=== PATIENT | female | born 1990 | race Caucasian/White ===

== ENCOUNTER 2016-06-08 18:35 | Emergency (ER) | payer OTHER ==
[2016-06-08 19:16] VITALS: BP 170/85
--- NOTE | 2016-06-08 19:42 | UC ---
Back Pain HPI - HPI Summary HPI Summary: Spasmodic waves of L flank pain since last night. Has this pain on both sides at different times, in the past had kidney US that didn't show any problems. Pt is certain it is muscle spasms, usually treats with heating pad and pain medicine such as NSAIDS or leftover percocet from her and then it goes away. This time it is not going away and pt needs note for work and help with pain. Wants to see her doctor on Saturday for workup, not interested in a lot of testing here tonight. - History of Current Complaint Chief Complaint: UCBackPain Stated Complaint: BACK PAIN Time Seen by Provider: 06/08/16 19:31 Hx Obtained From: Patient Hx Last Menstrual Period: 05/25/16 ?: No Onset/Duration: Sudden Onset, Lasting Hours Timing: Constant Severity Initially: Mild Severity Currently: Moderate Character: Throbbing, Spasmodic Aggravating: Movement, Lifting, Bending Alleviating: Rest, Position Associated Signs And Symptoms: Negative: Weakness, Numbness, Bladder Incontinence, Bowel Incontinence, Weight Loss - Allergies/Home Medications Allergies/Adverse Reactions: Allergies Allergy/AdvReac Type Severity Reaction Status Date / Time Naproxen [From Aleve] Allergy Tachycardia Verified 06/08/16 19:15 PMH/Surg Hx/FS Hx/Imm Hx Endocrine History Of: Denies: Diabetes, Thyroid Disease Cardiovascular History Of: Reports: Hypertension Denies: Cardiac Disorders, Pacemaker/ICD Respiratory History Of: Denies: COPD, Asthma GI/ History Of: Denies: Ulcer - Surgical History Surgical History: Yes Surgery Procedure, Year, and Place: C-SECTIONS - Family History Known Family History: Positive: None - Social History Occupation: Employed Full-time Lives: With Family Alcohol Use: Weekly Substance Use Type: None Smoking Status (MU): Never Smoked Tobacco Review of Systems Constitutional: Negative Skin: Negative Eyes: Negative ENT: Negative Respiratory: Negative Cardiovascular: Negative Gastrointestinal: Negative Genitourinary: Negative Motor: Negative Neurovascular: Negative Musculoskeletal: Myalgia Neurological: Negative Psychological: Negative All Other Systems Reviewed And Are Negative: Yes Physical Exam Triage Information Reviewed: Yes Appearance: Well-Appearing, Obese Vital Signs: Initial Vital Signs Temp 99.7 F 06/08/16 19:11 Pulse 93 06/08/16 19:11 Resp 19 04/28/17 19:11 BP 170/85 06/08/16 19:11 Pulse Ox 100 06/08/16 19:11 Vital Signs Reviewed: Yes Eye Exam: Normal Eyes: Positive: Conjunctiva Clear ENT Exam: Normal ENT: Positive: Normal ENT inspection, Hearing grossly normal, Pharynx normal, TMs normal Dental Exam: Normal Neck exam: Normal Neck: Positive: Supple, Nontender, No Lymphadenopathy Respiratory Exam: Normal Respiratory: Positive: Chest non-tender, Lungs clear, Normal breath sounds, No respiratory distress, No accessory muscle use Cardiovascular Exam: Normal Cardiovascular: Positive: RRR, No Murmur Abdomen Description: Positive: CVA Tenderness (L) - mild Musculoskeletal Exam: Normal Musculoskeletal: Positive: Strength Intact, ROM Intact Neurological Exam: Normal Neurological: Positive: Alert Psychological Exam: Normal Skin Exam: Normal Back Pain Course/Dx - Differential Dx/Diagnosis Provider Diagnoses: L flank pain. UTI Discharge - Discharge Plan Condition: Stable Disposition: HOME Prescriptions: Ciprofloxacin HCl [Cipro 500 MG TAB] 500 mg PO BID #9 tab Hydrocodone-Acetaminophen [[place] 5-325 mg] 1 tab PO BEDTIME #5 tab MDD 1 Patient Education Materials: Urinary Tract Infection in Women (ED), Flank Pain (ED) Forms: *Work Release Referrals: No Primary Care Phys,NOPCP [Primary Care Provider] - Additional Instructions: Please follow up with your doctor next week as you have planned. We will send a urine culture. Take the antibiotic until the culture comes back - - if it shows no bacteria you can stop this medicine. Otherwise, please finish the whole course.
[2016-06-08] MEDS ORDERED: Cyclobenzaprine TAB* 10 MG PO ONE (19:45)
[2016-06-08] MEDS ORDERED: HYDROcodone/ACETAMIN 5-325 MG* 1 TAB PO ONE (19:45)
[2016-06-08] MEDS ORDERED: Ciprofloxacin TAB* 500 MG PO ONE (19:49)
== END 2016-06-08 20:00 | disposition home or self-care (01) ==
LOC: UCEAST 18:35
DX: N39.0 Urinary tract infection, site not specified (principal); R10.9 Unspecified abdominal pain; I10 Essential (primary) hypertension; E66.9 Obesity, unspecified
CPT/HCPCS: 81003; 87086; 99212; A9270-GY; G0463

== ENCOUNTER 2018-03-27 13:27 | Emergency (ER) | payer OTHER ==
[2018-03-27] MEDS ORDERED: Al Hydrox/Mg Hydrox/Simet LIQ* 30 ML UDC PO ONE (13:40)
[2018-03-27] MEDS ORDERED: Lidocaine 2% VISCOUS* 15 ML UDC PO ONE (13:40)
[2018-03-27 15:45] LABS: Urine Appearance Cloudy; Urine Bacteria Absent (Absent); Urine Bilirubin Negative (Negative); Urine Blood Negative (Negative); Urine Color Amber; Urine Glucose Negative (Negative); Urine Ketones Negative (Negative); Urine Nitrite Negative (Negative); Urine Protein Negative (Negative); Urine Red Blood Cell 1+(3-5/hpf) (Absent); Urine Specific Gravity 1.026 (1.010-1.030); Urine Squamous Epithelial Cell Present (Absent); Urine Urobilinogen Positive (Negative); Urine White Blood Cell 3+(>20/hpf) (Absent)
[2018-03-27 16:34] VITALS: BP 172/130
--- NOTE | 2018-03-27 17:02 | ED ---
Abdominal Pain/Female - HPI Summary HPI Summary: Patient is a 28-year-old female presenting to the ED with left flank pain 1 day. She states she has had this in the past and endorses this type of pain approximately 6 times per year. She also states she intermittently has UTI symptoms with this. She has never been seen for it. She went to the urgent care today who sent her here to the ED for further evaluation. She denies any fevers, sweats, chills. Denies any nausea, vomiting, diarrhea, constipation or abdominal pain. Pain is discretely located to the left flank and radiates to the left side body without radiation to the LLQ. She denies any gross hematuria. Denies knee urinary obstructive symptoms. Denies any headache. She states she has been otherwise healthy and takes no medications. Patient endorses a history of UTI without history of kidney stones. - History of Current Complaint Chief Complaint: EDFlankPain Stated Complaint: ABD/FLANK PAIN Time Seen by Provider: 03/27/18 16:12 Hx Obtained From: Patient Hx Last Menstrual Period: 05/25/16 ?: No Onset/Duration: Sudden Onset Timing: Constant Severity Initially: Moderate Severity Currently: Moderate Pain Intensity: 7 Pain Scale Used: 0-10 Numeric Location: Flank Radiates: Yes Radiates to: Other - left side body without pain to the LLQ Character: Burning, Tearing Aggravating Factor(s): Nothing Alleviating Factor(s): Nothing Associated Signs and Symptoms: Positive: Back Pain. Negative: Fever, Cough, Chest Pain, Dizzy, Constipation, Blood in Stool, Urinary Symptoms, Decreased Appetite, Vaginal Discharge, Nausea, Vomiting, Diarrhea - Risk Factors Ectopic Risk Factor: Negative Ovarian Torsion Risk Factor: Negative Allergies/Adverse Reactions: Allergies Allergy/AdvReac Type Severity Reaction Status Date / Time naproxen Allergy Tachycardia Verified 03/27/18 13:36 PMH/Surg Hx/FS Hx/Imm Hx Previously Healthy: Yes Endocrine/Hematology History: Denies: Hx Diabetes, Hx Thyroid Disease Cardiovascular History: Reports: Hx Hypertension Denies: Hx Pacemaker/ICD Respiratory History: Denies: Hx Asthma, Hx Chronic Obstructive Pulmonary Disease (COPD) GI History: Denies: Hx Ulcer Sensory History: Denies: Hx Hearing Aid Psychiatric History: Denies: Hx Panic Disorder - Surgical History Surgery Procedure, Year, and Place: C-SECTIONS - Immunization History Hx Pertussis Vaccination: No Immunizations Up to Date: Yes Infectious Disease History: No Infectious Disease History: Denies: Hx Clostridium Difficile, Hx Hepatitis, Hx Human Immunodeficiency Virus (HIV), Hx of Known/Suspected MRSA, Hx Shingles, Hx Tuberculosis, Hx Known/ Suspected VRE, Hx Known/Suspected VRSA, History Other Infectious Disease, Traveled Outside the [place] in Last 30 Days - Family History Known Family History: Positive: None - Social History Occupation: Unemployed Lives: With Family Alcohol Use: Weekly Hx Substance Use: No Substance Use Type: Reports: None Hx Tobacco Use: No Smoking Status (MU): Never Smoked Tobacco Review of Systems Constitutional: Negative Negative: Palpitations, Chest Pain Negative: Shortness Of Breath, Cough Negative: Abdominal Pain, Vomiting, Diarrhea, Nausea Positive: flank pain Musculoskeletal: Negative Skin: Negative All Other Systems Reviewed And Are Negative: Yes Physical Exam Triage Information Reviewed: Yes Vital Signs On Initial Exam: Initial Vitals Temp Pulse Resp BP Pulse Ox 98.2 F 76 17 183/122 100 03/27/18 13:32 03/27/18 13:32 03/27/18 13:32 03/27/18 13:32 03/27/18 13:32 Vital Signs Reviewed: Yes Appearance: Positive: Well-Appearing, Well-Nourished Skin: Positive: Warm, Skin Color Reflects Adequate Perfusion Head/Face: Positive: Normal Head/Face Inspection Eyes: Positive: EOMI, PATTI, Conjunctiva Clear Abdomen Description: Positive: Soft, CVA Tenderness (L). Negative: Distended, Guarding Musculoskeletal: Positive: Strength/ROM Intact Neurological: Positive: Sensory/Motor Intact, Alert, Oriented to Person Place, Time, Speech Normal Psychiatric: Positive: Normal, Affect/Mood Appropriate AVPU Assessment: Alert Diagnostics - Vital Signs Vital Signs Temp Pulse Resp BP Pulse Ox 03/27/18 16:33 98.4 F 71 18 172/130 99 03/27/18 13:32 98.2 F 76 17 183/122 100 - Laboratory Lab Results: Lab Results 03/27/18 Range/Units 15:25 Urine Color Dimple Urine Appearance Cloudy Urine pH 6.0 (5-9) Ur Specific [place] 1.026 (1.010-1.030) Urine Protein Negative (Negative) Urine Ketones Negative (Negative) Urine Blood Negative (Negative) Urine Nitrate Negative (Negative) Urine Bilirubin Negative (Negative) Urine Urobilinogen Positive A (Negative) Ur Leukocyte Esterase 3+ A (Negative) Urine WBC (Auto) 3+(>20/hpf) A (Absent) Urine RBC (Auto) 1+(3-5/hpf) A (Absent) Ur Squamous Epith Cells Present A (Absent) Urine Bacteria Absent (Absent) Urine Glucose Negative (Negative) Lab Statement: Any lab studies that have been ordered have been reviewed, and results considered in the medical decision making process. Abdominal Pain Fem Course/Dx - Course Course Of Treatment: On arrival to the ED, patient is initially placed in waiting area x 2.75 hours. While awaiting, she was able to give a urine sample. Labs were ordered. 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 I promptly saw her immediately on arrival to the room and discussed UA. Patient has left-sided flank pain radiating to the left side body without pain to the suprapubic region. She denies any UTI symptoms. She states she has had this several times throughout the year, but has never gotten it checked out. I discussed obtaining a CTA to assess for a kidney stone, however she has never had history of kidney stones. I've also discussed obtaining lab work to assure she does not have an infection. 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 She does not have a fever and has not been complaining of sweats or chills. I have agreed to give her ciprofloxacin for a possible pyelonephritis, but have discussed at length to the patient I'm unable to discern if she has a stone without CT or a worsening infection without labs. Patient voices understanding of this and again states she would like to be discharged with the antibiotic and understands she will return if she develops any fevers, sweats, chills, obstructive symptoms, worsening left flank pain or urinary symptoms. Hx of UTI. I will not have her sign out AMA as her vital signs are stable and she appears non-toxic. However, I have encouraged her to have a low threshold for return. She states she will return tonight or tomorrow with any changing symptoms. - Diagnoses Differential Diagnosis: Positive: Other - UTI, pyelonephritis, renal colic Provider Diagnoses: Pyelonephritis Discharge - Sign-Out/Discharge Documenting (check all that apply): Patient Departure Patient Received Moderate/Deep Sedation with Procedure: No - Discharge Plan Condition: Stable Disposition: HOME Prescriptions: Ciprofloxacin TAB* [Cipro 500 MG TAB*] 500 mg PO BID #14 tab traMADol TAB* [Ultram*] 50 mg PO Q8H PRN #12 tab MDD 3 PRN Reason: Pain Patient Education Materials: Kidney Infection (ED), Flank Pain (ED) Forms: *Work Release Referrals: Greg Lopez MD [Primary Care Provider] - Additional Instructions: As discussed, he needs return to the ED if he develop any worsening pain or fevers, sweats, chills or blood in the urine I have given you ciprofloxacin 500 mg twice daily 7 days I've also given you pain control as needed Do not drive with this medication - Billing Disposition and Condition Condition: STABLE Disposition: Home
--- NOTE | 2018-03-29 08:09 | PN ---
Progress Note - Progress Note Date of Service: 03/27/18 Note: Urine culture final Staphylococcus simulans This is likely contaminant, no growth of clinically significant organisms No treatment initiated
--- NOTE | 2018-03-29 08:10 | PN ---
Progress Note - Progress Note Date of Service: 03/27/18 Note: Urine culture final grew no clinically significant organisms However, patient was placed on ciprofloxacin prior to discharge due to UTI symptoms We'll continue with antibiotic at this time.
== END 2018-03-27 16:33 | disposition home or self-care (01) ==
LOC: ED 13:27
DX: N12 Tubulo-interstitial nephritis, not specified as acute or chronic (principal); M54.9 Dorsalgia, unspecified; R10.32 Left lower quadrant pain
CPT/HCPCS: 81003; 81015; 87086; 99282; A9270-GY

== ENCOUNTER 2018-07-01 13:14 | Observation (INO) | payer OTHER ==
[2018-07-01] MEDS ORDERED: NS 0.9% 1000 ML** 1,000 ML IV ONE (13:22)
--- NOTE | 2018-07-01 14:03 | ED ---
Complex/Multi-Sys Presentation - HPI Summary HPI Summary: This patient is a 28 year old F brought in by EMS presenting to [facility] with a chief complaint of N/V/D since 06/28/18. Per EMS The patient came from Urgent Care for a potential electrolyte imbalance. The patient had cramping in her hands that radiated into her arms during the ambulance ride to [facility] and also received medication for nausea with good effect. Per EMS her heart rate ranged from 140 to 101 BPM and while puking she had a blood pressure of 133/76. She also has an associated symptom of dizziness, but denies any pain in her abdomen and headaches. Patient denies a drastic change in her diet prior to arrival to the ED including eating out. Patient denies any chest pain shortness of breath or palpitations. She also denies any prior disease before this episode began. - History Of Current Complaint Chief Complaint: EDNauseaVomitDiarrh Time Seen by Provider: 07/01/18 13:22 Hx Obtained From: Patient Onset/Duration: Lasting Days - 3, Still Present Timing: Constant Severity Currently: Moderate Severity Initially: Moderate Aggravating Factor(s): nothing Alleviating Factor(s): nausea medication Associated Signs And Symptoms: Positive: Dizziness, Nausea, Vomiting, Diarrhea, Other - Cramping of the hands and BUE. Negative: Headache, SOB, Chest Pain, Palpitations, Abdominal Pain - Allergies/Home Medications Allergies/Adverse Reactions: Allergies Allergy/AdvReac Type Severity Reaction Status Date / Time naproxen Allergy Tachycardia Verified 07/01/18 13:44 PMH/Surg Hx/FS Hx/Imm Hx Previously Healthy: No Endocrine/Hematology History: Denies: Hx Diabetes, Hx Thyroid Disease Cardiovascular History: Reports: Hx Hypertension Denies: Hx Pacemaker/ICD Respiratory History: Denies: Hx Asthma, Hx Chronic Obstructive Pulmonary Disease (COPD) GI History: Denies: Hx Ulcer Sensory History: Denies: Hx Hearing Aid Psychiatric History: Denies: Hx Panic Disorder - Surgical History Surgery Procedure, Year, and Place: C-SECTIONS Infectious Disease History: No Infectious Disease History: Denies: Hx Clostridium Difficile, Hx Hepatitis, Hx Human Immunodeficiency Virus (HIV), Hx of Known/Suspected MRSA, Hx Shingles, Hx Tuberculosis, Hx Known/ Suspected VRE, Hx Known/Suspected VRSA, History Other Infectious Disease, Traveled Outside the [place] in Last 30 Days - Family History Known Family History: Positive: Hypertension Negative: Diabetes - Social History Alcohol Use: None Hx Substance Use: No Substance Use Type: Reports: None Hx Tobacco Use: No Smoking Status (MU): Never Smoked Tobacco Review of Systems Positive: Other - dizziness Negative: Palpitations, Chest Pain Negative: Shortness Of Breath Positive: Vomiting, Diarrhea, Nausea. Negative: Abdominal Pain Musculoskeletal: Other - POSITIVE - CRAMPING OF HANDS AND BUE Negative: Headache All Other Systems Reviewed And Are Negative: Yes Physical Exam - Summary Physical Exam Summary: VITAL SIGNS: Reviewed. GENERAL: Patient is a well-developed and nourished female who is lying comfortable in the stretcher. Patient is not in any acute respiratory distress. HEAD AND FACE: No signs of trauma. No ecchymosis, hematomas or skull depressions. No sinus tenderness. EYES: PERRLA, EOMI x 2, No injected conjunctiva, no nystagmus. EARS: Hearing grossly intact. Ear canals and tympanic membranes are within normal limits. MOUTH: Oropharynx within normal limits. NECK: Supple, trachea is midline, no adenopathy, no JVD, no carotid bruit, no c- spine tenderness, neck with full ROM. CHEST: Symmetric, no tenderness at palpation LUNGS: Clear to auscultation bilaterally. No wheezing or crackles. CVS: Regular rate and rhythm, S1 and S2 present, no murmurs or gallops appreciated. ABDOMEN: Soft, non-tender. No signs of distention. No rebound no guarding, and no masses palpated. Bowel sounds are normal. EXTREMITIES: FROM in all major joints, no edema, no cyanosis or clubbing. NEURO: Alert and oriented x 3. No acute neurological deficits. Speech is normal and follows commands. SKIN: Dry and warm Triage Information Reviewed: Yes Vital Signs On Initial Exam: Initial Vitals Temp Pulse Resp BP Pulse Ox 97.0 F 95 20 137/91 98 07/01/18 13:40 07/01/18 13:40 07/01/18 13:40 07/01/18 13:40 07/01/18 13:40 Vital Signs Reviewed: Yes Diagnostics - Vital Signs Vital Signs Temp Pulse Resp BP Pulse Ox 07/01/18 13:40 97.0 F 95 20 137/91 98 - Laboratory Result Diagrams: 07/02/18 05:21 07/02/18 05:21 Lab Statement: Any lab studies that have been ordered have been reviewed, and results considered in the medical decision making process. - Radiology Abdomen X Ray Radiology Interpretation Completed By: Radiologist Summary of Radiographic Findings: No free air or obstruction is noted. ED Physician has reviewed this report. - CT CT A/P CT Interpretation Completed By: Radiologist Summary of CT Findings: No acute CT pathology. ED Physician has reviewed this report. - EKG 1350 Cardiac Rate: NL - 99 BPM EKG Rhythm: Sinus Rhythm Summary of EKG Findings: Normal sinus rhythm at [address] depresions in leads 1, 2, AVF, V3-V6. Complex Multi-Symp Course/Dx Assessment/Plan: This patient is a 28-year-old female who presents to the emergency the department via ambulance after the patient was seen in the urgent care complaining of nausea vomiting and diarrhea for the last 3 days. The patient does not report any recent traveling, no abnormal foods, no sick contacts. She denies any bloody diarrhea or mucus in the diarrhea. EKG shows a sinus rhythm at [address] depressions in leads 1-2, aVF, V3 to V6. Patient denies any chest pain shortness of breath or palpitations. Blood tests without any significant abnormalities except for sodium of 134, potassium at 2.5, chloride 91, carbon dioxide 17, anion gap is 26, BUN is 5, glucose 182, lactic acid is 12.6, magnesium is 1.2, total bilirubin is 1.7, AST 1.68, AST 73 , lipase less than 10. Urinalysis with positive ketones and 2+ blood. No UTI. In the ED course the patient was given 2 L of IV fluids, she was given potassium by mouth and IV, and magnesium IV. ABG shows a pH of 7.59, PCO2 is 21 , PO2 is 148 and O2 sat is 100. Abdominal pelvic CT impression: no acute abdominal CT pathology. Patient reports that she is feeling better. I discuss my physical exam, findings and test results with Dr. Cantu from the hospitalist services and she agrees to admit patient to his services. Patient is hemodynamically stable alert and oriented x 3. - Diagnoses Provider Diagnoses: Hypokalemia, Hypomagnesemia, Elevated lactic acid level, Nausea, vomiting and diarrhea - Physician Notifications Discussed Care Of Patient With: Wanda Arbach Time Discussed With Above Provider: 16:30 Instructed by Provider To: Admit As Inpatient Discharge - Sign-Out/Discharge Documenting (check all that apply): Patient Departure - admit - Discharge Plan Condition: Stable Disposition: ADMITTED TO [facility] - Billing Disposition and Condition Condition: GOOD Disposition: Admitted to [facility] - Attestation Statements Document Initiated by Darine: Yes Documenting Scribe: Roberto Lux Provider For Whom Chasity is Documenting (Include Credential): Jimi Alvarenga MD Scribe Attestation: Roberto Virk, scribed for Jimi Alvarenga MD on 07/03/18 at 1147. Scribe Documentation Reviewed: Yes Provider Attestation: The documentation as recorded by the chasity, Roberto Lux accurately reflects the service I personally performed and the decisions made by Jimi jane MD Status of Scribe Document: Viewed
[2018-07-01 14:05] LABS: ABS Lymphocytes 1.3 10^3/ul (1.0-4.8); ABS Monocytes 0.9 10^3/ul (0-0.8); ABS Neutrophils 7.6 10^3/ul (1.5-7.7); Eosinophil % 0.1 %; Hematocrit 41 % (35-47); Hemoglobin 14.4 g/dL (12.0-16.0); Lymphocyte % 12.9 %; Mean Corpuscular HGB Conc 35 g/dL (31-36); Mean Corpuscular Hemoglobin 35 pg (27-31); Mean Corpuscular Volume 100 fL (80-97); Mean Platelet Volume 7.5 fL (7.4-10.4); Nucleated Red Blood Cells % 0.1; Platelet Count 273 10^3/uL (150-450); Red Blood Count 4.11 10^6 /uL (3.70-4.87); Red Cell Distribution Width 14 % (10.5-15); White Blood Count 9.8 10^3/uL (3.5-10.8)
[2018-07-01 14:16] LABS: Urine Appearance Clear; Urine Bacteria Absent (Absent); Urine Bilirubin Negative (Negative); Urine Blood 3+ (Negative); Urine Color Yellow; Urine Glucose Negative (Negative); Urine Ketones 1+ (Negative); Urine Nitrite Negative (Negative); Urine Protein Negative (Negative); Urine Red Blood Cell Trace(0-2/hpf) (Absent); Urine Specific Gravity 1.012 (1.010-1.030); Urine Squamous Epithelial Cell Present (Absent); Urine Urobilinogen Negative (Negative); Urine White Blood Cell Trace(0-5/hpf) (Absent)
[2018-07-01 14:16] LABS: ALT 73 U/L (7-52); AST 168 U/L (13-39); Albumin 3.8 g/dL (3.2-5.2); Albumin/Globulin Ratio 1.2 (1-3); Alkaline Phosphatase 89 U/L (34-104); BUN/Creatinine Ratio 5.6 (8-20); Blood Urea Nitrogen 5 mg/dL (6-24); C Reactive Protein 1.47 mg/L (<8.01); CO2 Carbon Dioxide 17 mmol/L (22-32); Calcium 9.2 mg/dL (8.6-10.3); Chloride 91 mmol/L (101-111); Creatine Kinase 85 U/L (10-223); EGFR African American 91.4 (>60); EGFR Non-African American 75.5 (>60); Globulin 3.2 g/dL (2-4); Glucose 182 mg/dL (70-100); Magnesium 1.2 mg/dL (1.9-2.7); Sodium 134 mmol/L (135-145)
[2018-07-01 14:20] LABS: Anion Gap 26 mmol/L (2-11); Potassium 2.5 mmol/L (3.5-5.0)
[2018-07-01] MEDS ORDERED: Potassium Chlor TAB* 20 MEQ TAB.ER PO ONE (14:20)
[2018-07-01] MEDS ORDERED: Magnesium Sulfate 2 GM IV* 2 GM/50 ML BAG IVPB ONE (14:21)
[2018-07-01] MEDS: KCL 10 MEQ/50 ML IVPREMIX* 10 MEQ/50 ML BAG IV SCH ×3 (14:47→16:01)
[2018-07-01 16:06] LABS: HCG Pregnancy < 0.60 mIU/mL
[2018-07-01] MEDS ORDERED: Iohexol 300* (CONTRAST) 10 ML SDV IV ONE (16:39)
[2018-07-01 17:15] LABS: BUN/Creatinine Ratio 5.7 (8-20); EGFR African American 120.6 (>60); EGFR Non-African American 99.6 (>60); Magnesium 2.1 mg/dL (1.9-2.7); Phosphorus 1.6 mg/dL (2.5-5.0); Potassium 3.3 mmol/L (3.5-5.0)
[2018-07-01 17:47] LABS: Urine Benzodiazepine Screen None Detected (None Detect); Urine Opiates Screen None Detected (None Detect)
[2018-07-01 18:15] LABS: Folate 4.62 ng/mL (>3.99)
[2018-07-01] MEDS ORDERED: POTASSIUM PHOSPHATE IVPB ONE (18:30)
[2018-07-01] MEDS ORDERED: NS IVPB ONE (18:30)
[2018-07-01] MEDS ORDERED: Ondansetron INJ* 2 MG/ML VIAL IV PRN (18:45)
[2018-07-01] MEDS ORDERED: Enoxaparin(*) 40 MG/0.4 ML SYR SUBCUT SCH (19:30)
[2018-07-01] MEDS: Lactated Ringers 1000 ML Bag* 1,000 ML IV SCH ×2 (19:33→22:09)
[2018-07-01] MEDS: Potassium Chlor TAB* 20 MEQ TAB.ER PO SCH ×2 (19:33→20:38)
--- NOTE | 2018-07-01 20:45 | HP ---
CC: Dr. Lopez * HISTORY AND PHYSICAL: DATE OF ADMISSION: 07/01/18 PRIMARY CARE PROVIDER: Dr. Lopez. ATTENDING PHYSICIAN: Wanda Cantu MD * (dictated by ASHLEIGH Momin) CHIEF COMPLAINT: Nausea, vomiting. HISTORY OF PRESENT ILLNESS: Ms. Oconnor is a 28-year-old female with a past medical history of hypertension for which she is currently not on any medications who presented to the ER today from the urgent care with nausea, vomiting, cramps in both hands that radiated up the arms. She states that she has had nausea and vomiting since approximately Saturday. She notes that she had approximately 4 drinks on Saturday. She went to work on Saturday and started to feel unwell. She had nausea, vomiting. She was unable to tolerate food intake. She states that she went directly home and went to bed. The next day, she was feeling a little bit better. She was able to tolerate fluids on Saturday. She notes that she had 1 to 2 beers after work on Saturday. The following day, Saturday, the patient states that she was unable to keep anything down. Today, she went to an urgent care due to continued nausea, vomiting, and new onset of the hands "seizing" stating she could not open her hands. She then notes that she had cramping radiating up her arms. The urgent care referred her to the ER due to electrolyte abnormalities. The patient states that she has had a decreased appetite over the past few months, but that it has been worse in the last 3 days. She also complains of diarrhea 1 to 2 times per day that she notes is loose or watery without mucus or blood. She believes there may be specks of blood in her vomit, although there has been no large amounts of blood and she is unsure if it is blood or food particles. She complains of fatigue, chills/sweats, but denies subjective fevers, although she has never taken her temperature. She denies recent travel, recent exposure to GI illness. She denies prescription medication use. She notes that she has taken 2 extra strength Tylenols in the last approximately 1 week. She has had no new food, drugs, or prescriptions. She does note that she has had unprotected sex multiple times and notes that she has had 2 male partners in the last 6 months. She notes that she is occasionally depressed, although she denies suicidal ideation. She notes occasional anxiety. In the ER, the patient received a full workup, which included blood work and imaging. The patient received repletion for various electrolytes including potassium, magnesium, and phosphate. Her lactic acid was noted to be 12.6 on admission. It has decreased down to 3.8 with fluid bolus. She received imaging including abdominal x-ray and abdominopelvic CT, which revealed nonalcoholic fatty liver disease and hepatomegaly. The patient is noted to have elevated LFTs with alk phos and lipase within normal limits. Hospitalist team was asked to evaluate the patient for admission. PAST MEDICAL HISTORY: Hypertension. The patient was previously on a medication , but has not renewed it and therefore has not been on hypertension medication for some time. PAST SURGICAL HISTORY: . MEDICATIONS: Home medications: None. ALLERGIES: NAPROXEN - tachycardia. FAMILY HISTORY: Positive for hypertension. She reports no history of diabetes mellitus, cancer, heart disease, or stroke. SOCIAL HISTORY: The patient states that she is a social smoker. She does not smoke daily. She notes that she drinks "more than the average person." She works at [employer] and works approximately 6 days a week and consumes 2 alcoholic beverages after work each night. She estimates 12 to 14 drinks per week. She lives at home with her son. In the event that she is unable to make her own medical decisions, she has appointed her mother, Tania Oconnor, to be her surrogate decision maker. REVIEW OF SYSTEMS: A 10-point review of systems was performed and all the pertinent positives and negatives are in the HPI, all other systems are negative. PHYSICAL EXAMINATION GENERAL: Ms. Oconnor is a well-developed, well-nourished, obese, young white woman who is sitting up in bed. She has a relatively flat affect, but appears to be in no acute distress or discomfort. She appears her stated age. VITAL SIGNS: Temperature 97.0 temporal, heart rate 117, respiratory rate 21, oxygen saturation 100% on room air, blood pressure 140/70. HEENT: Visual cronin are grossly intact. Pupils are equally round and reactive to light. Extraocular movements are intact. There is no scleral icterus. Hearing is grossly intact. Oral mucous membranes are dry. There are no lesions. The pharynx is clear. RESPIRATORY: Symmetrical chest expansion without use of accessory muscles. Lungs clear to auscultation. There are no rhonchi, wheezes, or rubs. CARDIOVASCULAR: Tachycardic rate. Regular rhythm. S1, S2 present. There are no murmurs, rubs or gallops. There is no JVD. ABDOMEN: Obese. Bowel sounds are hypoactive throughout. There is no splenomegaly. The liver is palpable. EXTREMITIES: Skin is warm and smooth bilaterally. There is no clubbing, cyanosis, or edema. Radial and pedal pulses are palpable. NEURO: The patient is awake. She is alert and oriented x3. She is able to move all of her extremities. LABORATORY DATA: MCV 100, MCH 35. ABG pH 7.59, ABG pCO2 21, pO2 148, HCO3 25.3, O2 saturation 100%. Potassium 3.3, chloride 100, anion gap of 13, glucose 127. Lactic acid 3.8. Calcium 8. Phosphorus 1.6. Magnesium 2.1. Vitamin B12 at 558, folate 4.62. Lipase less than 10. ASSESSMENT AND PLAN: Ms. Oconnor is a 28-year-old female with a past medical history of hypertension for which she is not being treated at the current time, who presented to the ER today with complaints of nausea, vomiting, and hand cramping that radiated up the arms. She was found to have electrolyte abnormalities. The patient will be admitted inpatient for: 1. Nausea, vomiting. The patient has had nausea, vomiting for approximately 4 days. She is noted to have an anion gap and lactic acidosis. Drug screen negative. She will be given two more liters of fluids over the next few hours with recheck of volume status in the morning. She will be placed on a clear liquid diet as tolerated. Antinausea medications have been ordered. CT scan shows hepatomegaly and nonalcoholic fatty liver disease. Hepatitis panel has been ordered. Fecal studies have been ordered. Blood cultures are ordered. The patient will be admitted on telemetry. 2. Electrolyte abnormalities. The patient's potassium was repleted. She will be given potassium with goal of 4.0. The patient's magnesium was repleted and is now 2.1. Phosphorus has been ordered. Repeat electrolytes ordered for 10 p.m. tonight to monitor for need for further correction. 3. Lactic acidosis. The patient had a lactic acidosis of 12.6 on admission. She was given 1 L of normal saline fluid bolus. Repeat lactic acidosis was 3.8. The patient will continue on fluids. Lactic acid will be redrawn tonight. 4. Elevated liver function tests. Hepatitis panel has been ordered. The patient denies abdominal pain, although she does have nausea, vomiting, diarrhea. Awaiting laboratory results at this time. 5. Tachycardia. This is likely in the setting of volume depletion. Patient placed on fluids overnight. Continue to monitor. 6. Macrocytosis. Folate and B12 ordered and are within normal limits. 7. Hypertension. The patient appears to be adequately controlled at this time. Systolic blood pressure max is 140. As she continues to receive fluids, we will monitor for the need for hypertensive medications. 8. Code status is full code. 9. DVT prophylaxis. Based on the DVT Risk Assessment, the patient scores 2 and is moderate risk. She will be placed on Lovenox 40 subcu q.24 hours. TIME SPENT: Approximately 60 minutes was spent on this admission, greater than half of the time was spent with the patient obtaining history, performing a physical, and reviewing the plan of care. The case has been reviewed with my attending, Dr. Cantu, who is in agreement with the plan of care. ASHLEIGH JASSO [id number]/[facility] #: [id number] LASHAE
[2018-07-01 23:06] LABS: BUN/Creatinine Ratio 5.9 (8-20); Calcium 7.9 mg/dL (8.6-10.3); EGFR African American 124.7 (>60); Phosphorus 2.6 mg/dL (2.5-5.0); Potassium 3.7 mmol/L (3.5-5.0)
[2018-07-02 05:56] LABS: ABS Eosinophils 0.1 10^3/ul (0-0.6); ABS Lymphocytes 2.7 10^3/ul (1.0-4.8); ABS Monocytes 0.6 10^3/ul (0-0.8); ABS Neutrophils 2.5 10^3/ul (1.5-7.7); Eosinophil % 1.2 %; Hematocrit 34 % (35-47); Hemoglobin 11.7 g/dL (12.0-16.0); Lymphocyte % 45.7 %; Mean Corpuscular HGB Conc 35 g/dL (31-36); Mean Corpuscular Hemoglobin 36 pg (27-31); Mean Corpuscular Volume 102 fL (80-97); Mean Platelet Volume 7.3 fL (7.4-10.4); Nucleated Red Blood Cells % 0.1; Platelet Count 206 10^3/uL (150-450); Red Blood Count 3.28 10^6 /uL (3.70-4.87); Red Cell Distribution Width 14 % (10.5-15)
[2018-07-02 06:16] LABS: Albumin 2.9 g/dL (3.2-5.2); Albumin/Globulin Ratio 1.2 (1-3); BUN/Creatinine Ratio 6.6 (8-20); Calcium 7.6 mg/dL (8.6-10.3); EGFR African American 141.3 (>60); EGFR Non-African American 116.8 (>60); Globulin 2.4 g/dL (2-4); Potassium 3.5 mmol/L (3.5-5.0); Total Bilirubin 1.5 mg/dL (0.2-1.0); Total Protein 5.3 g/dL (6.4-8.9)
[2018-07-02 08:53] LABS: Hepatitis B Surface Antigen Nonreactive (Nonreactive)
[2018-07-02] MEDS ORDERED: Potassium Chlor TAB* 20 MEQ TAB.ER PO ONE (09:13)
[2018-07-02 09:19] LABS: Hepatitis C Antibody Nonreactive (Nonreactive)
[2018-07-02 15:51] VITALS: BP 131/80
--- NOTE | 2018-07-02 20:35 | DS ---
CC: [facility]* DISCHARGE SUMMARY: DATE OF ADMISSION: 07/01/18 DATE OF DISCHARGE: 07/02/18 PRIMARY CARE PROVIDER: [facility]. ATTENDING PHYSICIAN: Dr. Eduard Zarate* (dictated by Inga Bah NP). PRIMARY DIAGNOSES: 1. Gastroenteritis. 2. Hypokalemia. 3. Hypophosphatemia. 4. Hypomagnesemia. 5. Lactic acidosis. 6. Transaminitis. SECONDARY DIAGNOSIS: Hypertension. STUDIES WHILE IN THE HOSPITAL: 1. EKG on 07/01/18 shows sinus tachycardia with a rate of 100, QTc 550. Diffuse minimal ST depression. 2. Abdomen x-ray on 07/01/18 reads as no free air or obstruction is noted. 3. Abdomen and pelvis CT on 07/01/[address] pathology. HISTORY OF PRESENT ILLNESS AND HOSPITAL COURSE: Ms. Oconnor is a 28-year-old female with past medical history of hypertension for which she is not currently being treated, who presented to the emergency room on 07/01/18 with complaints of nausea, vomiting, and diarrhea. Please see the history and physical by ASHLEIGH Momin for a complete summary of the events leading up to this hospitalization. In short, the patient reported 5 days of nausea, vomiting and diarrhea. She did note that she had 4 alcoholic drinks on Saturday, though otherwise did not have any diet changes. She [facility] and was then sent to the emergency room to due to her electrolyte abnormalities. She complained of fatigue, though no fevers. She did not take any new medications. In the emergency room, she was noted to be tachycardic up into the 110s. She had lab work, which was remarkable for a potassium of 2.5, a glucose of 182, a lactic acid of 12.6, a magnesium of 1.2, a phosphorus of 1.6. Elevated bili, AST, and ALT. Because of her electrolyte abnormalities, the patient was admitted by the hospitalist service. The patient was repleted with potassium, phosphorus and magnesium and electrolytes normalized. She was treated with IV fluids for her lactic acidosis and her lactic was still elevated last night around 2200 at 2.6, so this morning it is down to 1.7. There is no hypokalemia this morning. A total bili and AST remain elevated, though ALT has normalized. The patient was noted to have some macrocytosis with a mean corpuscular volume of 102. She did, however, have a normal B12 and folate level. She had a negative urinalysis and negative toxicology screen and a negative hepatitis panel. Although this morning, the patient reports feeling significantly improved. She reported 2 loose bowel movements since arrival to the emergency room, which was already improved from what she had been experiencing at home. She did not have any further nausea or vomiting. She did tolerate a clear liquid diet this morning for breakfast and so was advanced to a full liquid diet for lunch, which she also tolerated well. Her tachycardia has resolved and that was secondary to hypovolemia. Electrolyte abnormalities were all secondary to gastrointestinal loss. It is not exactly clear why her lactic acid was so high, although I think this may just have been secondary to hypovolemia. I will additionally note that the patient had an ABG in the emergency room, which showed a respiratory alkalosis. The cause of this is not entirely clear, though her respiratory status is stable at this time. Due to the patient's tachycardia, mild tachypnea and elevated lactic acid, she did meet criteria for severe sepsis , although there was no bacterial source of this and this was secondary to what is likely a viral gastroenteritis and hypovolemia. Ms. Oconnor is stable for discharge today. Vitals are as follows: Temp 98.3, heart rate 90, respiratory rate 20, oxygen saturation 98% on room air, blood pressure 131/80. DISCHARGE MEDICATIONS: Ondansetron 4 mg p.o. q.6 hours p.r.n. nausea and vomiting. DISCHARGE PLAN: Ms. Oconnor will be discharged home. Activity will be as tolerated. Diet will be full liquids advancing back to a regular diet slowly. I have given the patient a small supply of Zofran for any additional nausea that she may experience. Because of her severe electrolyte abnormalities, I have advised the patient that she should have repeat lab work this Saturday. I have provided her with orders for a CMP, magnesium and phosphorus for this Saturday. I will note that she does not have a primary care provider, though is agreeable to following up with the [facility]. I have indicated the results of the lab work should be sent to [facility]. I advised the patient that our office may call her to schedule an appointment tomorrow, though if she does not hear from our office tomorrow that she should call the [facility] herself to schedule an appointment within the next 4 to 7 days. The patient has been instructed to return to the emergency room or nearest hospital for any worsening of symptoms, shortness of breath, lightheadedness, dizziness, chest discomfort, high fever, chills, night sweats, loss of consciousness, or any other worrisome signs or symptoms. DISCHARGE CONDITION: Stable. DISCHARGE DISPOSITION: Home. This is a summarized report of a complex medical history and hospital stay. For further details, please see the entire medical record. TIME SPENT: Approximately 45 minutes was spent on this discharge. INGA BAH NP [id number]/[facility] #: [id number] LASHAE
== END 2018-07-02 17:08 | disposition home or self-care (01) ==
LOC: ED 13:14 → INTOOBSV 18:45 → MEDTELE 18:45
PROVIDERS: ADMIT Internal Medicine; ATTEND Internal Medicine
DX: K52.9 Noninfective gastroenteritis and colitis, unspecified (principal); E87.6 Hypokalemia; E83.39 Other disorders of phosphorus metabolism; E83.42 Hypomagnesemia; E87.2 Acidosis; R74.0 Nonspecific elevation of levels of transaminase and lactic acid dehydrogenase [LDH]; I10 Essential (primary) hypertension; R11.2 Nausea with vomiting, unspecified
CPT/HCPCS: 36415; 74019; 74177; 80048; 80053; 80074; 80307; 81003; 81015; 82550; 82607; 82746; 82803; 83605; 83630; 83690; 83735; 83880; 84100; 84702; 85025; 86140; 86790; 87040; 87086; 87493; 93005; 96365; 96366; 96367; 96372; 99284; A9270-GY; G0378; J1650; J3475; J3480; Q9967

== ENCOUNTER 2018-07-04 09:42 | Emergency (ER) | payer OTHER ==
--- NOTE | 2018-07-04 10:56 | ED ---
Abdominal Pain/Female - HPI Summary HPI Summary: A 28 y/o F presents to ED c/o worsening vomiting onset this AM. She was admitted overnight from [facility] on 07/01/18 with hypomagnesemia, hypokalemia, elevated lactate (>12) and vomiting, and discharged on 07/02/18 after IV hydration and electrolyte replacement and dx with viral gastroenteritis, dehydration. She's vomited 5x since her release two days ago, and 3x this AM since 0800. Her vomit was undigested food. She tried to take her Zofran this AM but threw up. Associated sx: diarrhea, abd pain secondary to vomiting, mild CP, wheezing, bilat LE weakness. Denies hematemesis, bloody stool, flank pain. She is scheduled for outpatient labs today but was too ill to do that. PMHx: HTN, UTI. A1. No PMHx: kidney stones, GERD, asthma. She's never had a GI scope. Abd surgery: . [facility]: currently. Vitals at bedside: HR: 81 bpm, O2 sat: 100%, BP: 124/77 Home Medications Medication Instructions Recorded Confirmed Type Ondansetron ODT TAB* [Zofran 4 MG 4 mg PO Q6H PRN #20 tab.odt 07/02/18 Rx Odt TAB*] - History of Current Complaint Chief Complaint: EDAbdPain Stated Complaint: ABD PAIN PER PT Time Seen by Provider: 07/04/18 10:44 Hx Obtained From: Patient, Family/Book Or Script Editor - son, mom present Hx Last Menstrual Period: 07/04/2018 ?: No Onset/Duration: Sudden Onset, Lasting Days, Still Present Timing: Intermittent Episode Lasting - minutes Severity Initially: Moderate Severity Currently: Severe Pain Intensity: 0 Pain Scale Used: 0-10 Numeric Aggravating Factor(s): Nothing Alleviating Factor(s): Nothing Associated Signs and Symptoms: Positive: Chest Pain, Vaginal Bleeding - menses, usual period for her, Vomiting, Diarrhea, Other: - pos: wheezing, abd pain secondary to vomiting, bilat LE weakness. neg: flank pain, hematemesis. bloody stool.. Negative: Blood in Stool Allergies/Adverse Reactions: Allergies Allergy/AdvReac Type Severity Reaction Status Date / Time naproxen Allergy Tachycardia Verified 07/04/18 09:48 PMH/Surg Hx/FS Hx/Imm Hx Previously Healthy: No Endocrine/Hematology History: Denies: Hx Diabetes, Hx Thyroid Disease Cardiovascular History: Reports: Hx Hypertension Denies: Hx Pacemaker/ICD Respiratory History: Denies: Hx Asthma, Hx Chronic Obstructive Pulmonary Disease (COPD) GI History: Denies: Hx Ulcer Sensory History: Denies: Hx Contacts or Glasses, Hx Hearing Aid Opthamlomology History: Denies: Hx Contacts or Glasses Psychiatric History: Denies: Hx Panic Disorder - Surgical History Surgery Procedure, Year, and Place: [facility] Infectious Disease History: No Infectious Disease History: Denies: Hx Clostridium Difficile, Hx Hepatitis, Hx Human Immunodeficiency Virus (HIV), Hx of Known/Suspected MRSA, Hx Shingles, Hx Tuberculosis, Hx Known/ Suspected VRE, Hx Known/Suspected VRSA, History Other Infectious Disease, Traveled Outside the [place] in Last 30 Days - Family History Known Family History: Positive: Hypertension Negative: Diabetes - Social History Occupation: Employed Full-time Lives: With Family Alcohol Use: Occasionally Alcohol Amount: Pt states drinking a couple beers after work. Hx Substance Use: No Substance Use Type: Reports: None Hx Tobacco Use: No Smoking Status (MU): Never Smoked Tobacco Review of Systems Constitutional: Negative Positive: Chest Pain Positive: Other - pos: wheezing Positive: Abdominal Pain, Vomiting, Diarrhea, Other - neg: bloody stool, bloody vomit Positive: no symptoms reported. Negative: flank pain Musculoskeletal: Negative Skin: Negative Positive: Weakness - bilat LE Psychological: Normal All Other Systems Reviewed And Are Negative: Yes Physical Exam - Summary Physical Exam Summary: Appearance: ill-appearing, no acute pain distress, well-nourished Skin: Warm, color reflects adequate perfusion, dry, striae on abdomen Head: Normal Head/Face inspection, atraumatic Eyes: Conjunctiva clear ENT: Normal inspection Neck: Supple, no nodes, no JVD Respiratory: Lungs clear, normal breath sounds, no respiratory distress, no wheezing Cardio: RRR, No murmur, pulses normal, brisk capillary refill, CP is not reproducible Abdomen: Soft, mild diffuse tenderness, no rebound, no guarding, no masses, non- distended, no CVA tenderness Bowel sounds: Present Musculoskeletal: Strength Intact/ROM intact, strength 5/5, sensation intact, no calf tenderness, no edema. Psychological: Normal Neuro: Alert, muscle tone normal, no focal deficit Triage Information Reviewed: Yes Vital Signs On Initial Exam: Initial Vitals Temp Pulse Resp BP Pulse Ox 97.6 F 92 18 143/82 100 07/04/18 09:43 07/04/18 09:43 07/04/18 09:43 07/04/18 09:43 07/04/18 09:43 Vital Signs Reviewed: Yes Diagnostics - Vital Signs Vital Signs Temp Pulse Resp BP Pulse Ox 07/04/18 09:43 97.6 F 92 18 143/82 100 - Laboratory Result Diagrams: 07/04/18 10:54 07/04/18 10:54 Lab Statement: Any lab studies that have been ordered have been reviewed, and results considered in the medical decision making process. Re-Evaluation - Re-Evaluation First Eval Re-Evaluation Time: 13:00 Change: Improved Comment: Patient has just received her metoclopramide 10 mg IV. She states she' s doing better, would like to try some crackers and wilbert rachel. 2nd Re-Evaluation Time: 16:32 Change: Improved Comment: She is feeling better, she ate and did not vomit. Prefers the Reglan over the Zofran. Will discharge patient home, she is agreeable to this. Abdominal Pain Fem Course/Dx - Course Course Of Treatment: Pt is a 28 y/o F presents with vomiting 3x onset this AM. She was seen admitted through [facility] on 07/01 with hypokalemia, hypomagnesemia and elevated lactat >12 and discharged on 07/02/18 with dx of viral gastroenteritis, dehydration. Pt states vomiting has continued since discharge, despite zofran. 1215: Lactic acid: 3.3, ED provider aware. Additional lab results shows. sodium: 134, CO2: 21, BUN: 3, BUN/C: 4.6, M.5, total bili: 1.30, AST: 63, total protein: 6.3, amylase: 24. Repeat lactic acid is 1.1 after hydration and magnesium replacement. UA shows 2+ blood, however patient is menstruating, and is otherwise unremarkable. In the ED course, pt is given 2 liters of fluids, metoclopramide 10mg IV and magnesium 2gms IV with relief of symptoms and no further vomiting in the ED, and pt able to retain po. Upon re- eval, patient is feeling improved. She ate and did not vomit. Will discharge patient home with Reglan, which she prefers over Zofran, and to follow up with [facility]. - Diagnoses Differential Diagnosis: Positive: Gall Bladder Disease, Hepatitis, Irritable Bowel Syndrome, Pancreatitis, Peptic Ulcer Disease, Urinary Tract Infection, Other - cyclical vomiting syndrome, cannabis hyperemesis, gastroenteritis, abdominal migraine Provider Diagnoses: Vomiting, Hypomagnesemia, Hypertension, poor control Discharge - Sign-Out/Discharge Documenting (check all that apply): Patient Departure - D/C Patient Received Moderate/Deep Sedation with Procedure: No - Discharge Plan Condition: Stable Disposition: HOME Prescriptions: Metoclopramide TAB* [Reglan TAB*] 10 mg PO Q8H PRN #20 tab PRN Reason: Vomiting Patient Education Materials: Acute Nausea and Vomiting (ED), Hypomagnesemia (ED ) Referrals: [facility] [Outside] - 2 Days Additional Instructions: Your presentation and labs showed again that you were dehydrated. You were given 2 L of normal saline while you were here. Your magnesium was low at 1.5. Normal is 1.9. You were given 2 g of IV magnesium to replace this. Dr. Molina recommends that you should take magnesium orally 400 mg a day. This is available [id number] without a prescription. Your bilirubin is 1.3 but this number is decreased from what it was when you were hospitalized earlier. Normal is 1.0. Also one of your liver enzymes is 63, your AST. Normal for AST is 39. However yours was 168 earlier. So you have some lab abnormalities that still need follow-up. Dr. Molina recommends that you could go to the [facility] at [facility]. Or you can try to get an appointment with Dr. Lopez or his coverage. Dr. Molina gave you Reglan 10 mg IV and it helped with your nausea and vomiting. She has prescribed this so you may try that for the vomiting if you have further nausea and vomiting. You may also continue to try the Zofran for the nausea and vomiting. Please return to the emergency room if you have any new or worsening symptoms. - Billing Disposition and Condition Condition: STABLE Disposition: Home - Attestation Statements Document Initiated by Scribe: Yes Documenting Scribe: [email or web address] Noel Provider For Whom Scribe is Documenting (Include Credential): Dr. Jonelle Molina MD Scribe Attestation: Jose Eduardo Virk, scribed for Dr. Jonelle Molina MD on 07/07/18 at 1851. Scribe Documentation Reviewed: Yes Provider Attestation: The documentation as recorded by the chasity, Jose Eduardo Cohen accurately reflects the service I personally performed and the decisions made by me, Dr. Jonelle Molina MD Status of Scribe Document: Viewed
[2018-07-04] MEDS ORDERED: NS 0.9% IV ONE (11:05)
[2018-07-04 11:11] LABS: ABS Basophils 0.1 10^3/ul (0-0.2); ABS Eosinophils 0.1 10^3/ul (0-0.6); ABS Monocytes 0.5 10^3/ul (0-0.8); Hematocrit 38 % (35-47); Hemoglobin 13.3 g/dL (12.0-16.0); Lymphocyte % 29.4 %; Mean Corpuscular HGB Conc 35 g/dL (31-36); Mean Corpuscular Hemoglobin 35 pg (27-31); Mean Corpuscular Volume 102 fL (80-97); Mean Platelet Volume 7.3 fL (7.4-10.4); Nucleated Red Blood Cells % 0.1; Platelet Count 248 10^3/uL (150-450); Red Blood Count 3.75 10^6 /uL (3.70-4.87); Red Cell Distribution Width 14 % (10.5-15); White Blood Count 6.7 10^3/uL (3.5-10.8)
[2018-07-04 11:41] LABS: ALT 44 U/L (7-52); AST 63 U/L (13-39); Albumin 3.3 g/dL (3.2-5.2); Albumin/Globulin Ratio 1.1 (1-3); Alkaline Phosphatase 80 U/L (34-104); Amylase 24 U/L (29-103); Anion Gap 10 mmol/L (2-11); BUN/Creatinine Ratio 4.6 (8-20); Blood Urea Nitrogen 3 mg/dL (6-24); C Reactive Protein 1.83 mg/L (<8.01); CO2 Carbon Dioxide 21 mmol/L (22-32); Calcium 8.9 mg/dL (8.6-10.3); Chloride 103 mmol/L (101-111); EGFR African American 131.3 (>60); EGFR Non-African American 108.5 (>60); Glucose 104 mg/dL (70-100); Magnesium 1.5 mg/dL (1.9-2.7); Potassium 4.3 mmol/L (3.5-5.0); Sodium 134 mmol/L (135-145); Total Protein 6.3 g/dL (6.4-8.9)
[2018-07-04 11:45] LABS: HCG Pregnancy < 0.60 mIU/mL
[2018-07-04 12:20] LABS: Urine Appearance Clear; Urine Bacteria Absent (Absent); Urine Bilirubin Negative (Negative); Urine Blood 2+ (Negative); Urine Color Amber; Urine Glucose Negative (Negative); Urine Ketones Negative (Negative); Urine Nitrite Negative (Negative); Urine Protein Negative (Negative); Urine Red Blood Cell Absent (Absent); Urine Specific Gravity 1.012 (1.010-1.030); Urine Squamous Epithelial Cell Present (Absent); Urine Urobilinogen Negative (Negative); Urine White Blood Cell Trace(0-5/hpf) (Absent)
[2018-07-04] MEDS ORDERED: Metoclopramide IV* 5 MG/ML 2 ML VIAL IV ONE (12:34)
[2018-07-04] MEDS ORDERED: Magnesium Sulfate 2 GM IV* 2 GM/50 ML BAG IVPB ONE (15:13)
[2018-07-04 17:23] VITALS: BP 147/90
== END 2018-07-04 17:22 | disposition home or self-care (01) ==
LOC: ED 09:42
DX: R11.2 Nausea with vomiting, unspecified (principal); E86.0 Dehydration; E83.42 Hypomagnesemia; I10 Essential (primary) hypertension; E87.6 Hypokalemia
CPT/HCPCS: 36415; 80053; 81003; 81015; 82150; 83605; 83690; 83735; 84702; 85025; 86140; 87086; 96361; 96365; 96374; 96375; 99283; J2765; J3475

== ENCOUNTER 2020-09-20 20:42 | Inpatient (IN) ==
[2020-09-21 00:38] LABS: ALT 57 U/L (7-52); AST 164 U/L (13-39); Albumin 4.3 g/dL (3.2-5.2); Albumin/Globulin Ratio 1.5 (1-3); Alkaline Phosphatase 77 U/L (35-149); Anion Gap 10 mmol/L (2-11); Blood Urea Nitrogen 6 mg/dL (6-24); C Reactive Protein < 1.00 mg/L (<8.01); CO2 Carbon Dioxide 27 mmol/L (22-32); Calcium 9.4 mg/dL (8.6-10.3); Chloride 96 mmol/L (101-111); EGFR African American 106.5 (>60); Globulin 2.8 g/dL (2-4); Glucose 115 mg/dL (70-100); Lipase 15 U/L (11.0-82.0); Potassium 3.5 mmol/L (3.5-5.0); Sodium 133 mmol/L (135-145); Total Protein 7.1 g/dL (6.4-8.9)
[2020-09-21 00:43] LABS: HCG Pregnancy < 0.60 mIU/mL
[2020-09-21] MEDS ORDERED: Ondansetron 4 mg VIAL 2 MG/ML 2 ml VIAL IV ONE (01:30)
[2020-09-21] MEDS ORDERED: NS 0.9% 1000 ml BAG 1,000 ML IV ONE (01:30)
[2020-09-21 02:38] LABS: ABS Lymphocytes 1.5 10^3/ul (1.0-4.8); ABS Monocytes 0.8 10^3/ul (0-0.8); Eosinophil % 0.2 %; Hematocrit 21 % (35-47); Hemoglobin 6.5 g/dL (12.0-16.0); Lymphocyte % 27.8 %; Mean Corpuscular HGB Conc 31 g/dL (31-36); Mean Corpuscular Hemoglobin 24 pg (27-31); Mean Corpuscular Volume 77 fL (80-97); Mean Platelet Volume 7.7 fL (7.4-10.4); Nucleated Red Blood Cells % 0.2; Platelet Count 182 10^3/uL (150-450); Red Blood Count 2.68 10^6 /uL (3.70-4.87); Red Cell Distribution Width 23 % (10-15); Urine Appearance Turbid; Urine Color Red; White Blood Count 5.3 10^3/uL (3.5-10.8)
[2020-09-21 02:45] LABS: Urine Specific Gravity 1.041 (1.002-1.030)
[2020-09-21 02:47] LABS: Activated Partial Thrombo Time 28.2 seconds (26.0-38.0); INR 1.12 (0.86-1.15)
[2020-09-21 03:15] LABS: Urine Red Blood Cell 3+(>10/hpf) (Absent)
[2020-09-21 03:18] LABS: Urine White Blood Cell Absent (Absent)
[2020-09-21] MEDS ORDERED: Norgestimate-Eth Estradiol(NF) TAB PO ONE (04:42)
[2020-09-21 05:29] LABS: TSH Ultra Thyroid Stim Horm 4.73 mcIU/mL (0.34-5.60)
[2020-09-21] MEDS ORDERED: Thiamine 100 MG/ML 2 ml VIAL (200 mg) IM ONE (05:56)
[2020-09-21] MEDS ORDERED: Thiamine 100 MG/ML 2 ml VIAL 100 MG, Folic Acid IV 1 MG, Multiple Vitamin IV ADULT 10 M... IV ONE (05:57)
[2020-09-21] MEDS ORDERED: D5NS 0.9% 1000 ml BAG 1,000 ML IV ONE (06:57)
[2020-09-21] MEDS ORDERED: Thiamine 100 MG/ML 2 ml VIAL (200 mg) ONE (06:57)
[2020-09-21] MEDS: Multivitamins/Minerals TAB PO SCH ×2 (11:50→11:52)
[2020-09-21 14:31] LABS: ABS Lymphocytes 1.5 10^3/ul (1.0-4.8); ABS Monocytes 0.5 10^3/ul (0-0.8); ABS Neutrophils 1.9 10^3/ul (1.5-7.7); Eosinophil % 0.5 %; Hematocrit 28 % (35-47); Lymphocyte % 37.6 %; Mean Corpuscular HGB Conc 32 g/dL (31-36); Mean Corpuscular Hemoglobin 26 pg (27-31); Mean Corpuscular Volume 80 fL (80-97); Mean Platelet Volume 8.2 fL (7.4-10.4); Nucleated Red Blood Cells % 0.2; Platelet Count 152 10^3/uL (150-450); Red Blood Count 3.45 10^6 /uL (3.70-4.87); Red Cell Distribution Width 20 % (10-15)
[2020-09-21] MEDS: ETHINYL ESTRADIOL PO SCH (19:09)
[2020-09-21] MEDS: NORGESTIMATE PO SCH (19:09)
[2020-09-22 06:12] LABS: ABS Eosinophils 0.1 10^3/ul (0-0.6); ABS Lymphocytes 1.8 10^3/ul (1.0-4.8); ABS Monocytes 0.5 10^3/ul (0-0.8); ABS Neutrophils 1.6 10^3/ul (1.5-7.7); Eosinophil % 1.4 %; Hematocrit 25 % (35-47); Lymphocyte % 45.3 %; Mean Corpuscular HGB Conc 32 g/dL (31-36); Mean Corpuscular Hemoglobin 26 pg (27-31); Mean Corpuscular Volume 82 fL (80-97); Nucleated Red Blood Cells % 0.2; Platelet Count 153 10^3/uL (150-450); Red Blood Count 3.04 10^6 /uL (3.70-4.87); Red Cell Distribution Width 21 % (10-15)
[2020-09-22] MEDS: Multivitamins/Minerals TAB PO SCH (08:30)
[2020-09-22] MEDS: NORGESTIMATE PO SCH (08:31)
[2020-09-22] MEDS: ETHINYL ESTRADIOL PO SCH (08:31)
[2020-09-22 09:31] LABS: Albumin 3.6 g/dL (3.2-5.2); Albumin/Globulin Ratio 1.5 (1-3); Calcium 8.5 mg/dL (8.6-10.3); EGFR African American 120.9 (>60); EGFR Non-African American 99.9 (>60); Globulin 2.4 g/dL (2-4); Potassium 3.3 mmol/L (3.5-5.0); Total Bilirubin 1.4 mg/dL (0.2-1.0)
[2020-09-22] MEDS ORDERED: Potassium Chlor 20 meq TAB.ER PO ONE ×2 (10:51→15:00)
[2020-09-22 11:24] LABS: Magnesium 1.6 mg/dL (1.9-2.7)
[2020-09-22 12:03] VITALS: BP 129/88
== END 2020-09-22 14:34 | disposition home or self-care (01) | DRG 532 ==
LOC: ED 20:42 → SSU 09-21 09:54
PROVIDERS: ADMIT Hospitalist; ATTEND Obstetrics & Gynecology

== ENCOUNTER 2020-09-23 10:05 | Observation (INO) ==
[2020-09-23] MEDS ORDERED: Thiamine 100 MG/ML 2 ml VIAL 100 MG, Folic Acid IV 1 MG, Multiple Vitamin IV ADULT 10 M... IV ONE (10:12)
[2020-09-23 10:28] LABS: ABS Basophils 0.1 10^3/ul (0-0.2); ABS Eosinophils 0.1 10^3/ul (0-0.6); ABS Lymphocytes 2.2 10^3/ul (1.0-4.8); ABS Monocytes 0.5 10^3/ul (0-0.8); ABS Neutrophils 2.3 10^3/ul (1.5-7.7); Eosinophil % 1.6 %; Hematocrit 20 % (35-47); Hemoglobin 6.5 g/dL (12.0-16.0); Lymphocyte % 42.2 %; Mean Corpuscular HGB Conc 32 g/dL (31-36); Mean Corpuscular Hemoglobin 27 pg (27-31); Mean Corpuscular Volume 83 fL (80-97); Mean Platelet Volume 7.2 fL (7.4-10.4); Nucleated Red Blood Cells % 0.2; Platelet Count 199 10^3/uL (150-450); Red Blood Count 2.43 10^6 /uL (3.70-4.87); Red Cell Distribution Width 21 % (10-15); White Blood Count 5.1 10^3/uL (3.5-10.8)
[2020-09-23 10:48] LABS: Albumin 3.6 g/dL (3.2-5.2); Albumin/Globulin Ratio 1.6 (1-3); EGFR African American 136.8 (>60); Globulin 2.3 g/dL (2-4); Potassium 3.3 mmol/L (3.5-5.0); Total Bilirubin 0.9 mg/dL (0.2-1.0); Total Protein 5.9 g/dL (6.4-8.9)
[2020-09-23 11:01] LABS: Magnesium 1.4 mg/dL (1.9-2.7)
[2020-09-23] MEDS ORDERED: Magnesium Sulfate IV 3 GM in NS 0.9% 100 ml BAG 100 ML IVPB ONE (11:06)
[2020-09-23] MEDS ORDERED: Thiamine 100 MG/ML 2 ml VIAL (200 mg) IM ONE (13:08)
[2020-09-23 13:59] LABS: Folate 11.18 ng/mL (5.90-24.80)
[2020-09-23] MEDS ORDERED: Potassium Chlor 20 meq TAB.ER PO ONE (15:45)
[2020-09-23] MEDS: Multivitamins/Minerals TAB PO SCH (17:22)
[2020-09-23] MEDS: CONJUGATED ESTROGENS 25 MG IV SCH (17:23)
[2020-09-23 20:37] LABS: ABS Eosinophils 0.1 10^3/ul (0-0.6); ABS Lymphocytes 1.9 10^3/ul (1.0-4.8); ABS Neutrophils 4.1 10^3/ul (1.5-7.7); Eosinophil % 1.3 %; Hematocrit 24 % (35-47); Hemoglobin 7.7 g/dL (12.0-16.0); Lymphocyte % 26.6 %; Mean Corpuscular HGB Conc 33 g/dL (31-36); Mean Corpuscular Hemoglobin 27 pg (27-31); Mean Corpuscular Volume 83 fL (80-97); Mean Platelet Volume 7.8 fL (7.4-10.4); Nucleated Red Blood Cells % 0.1; Platelet Count 214 10^3/uL (150-450); Red Blood Count 2.83 10^6 /uL (3.70-4.87); Red Cell Distribution Width 20 % (10-15); White Blood Count 7.2 10^3/uL (3.5-10.8)
[2020-09-23 20:55] LABS: Calcium 8.4 mg/dL (8.6-10.3); EGFR African American 108.1 (>60); EGFR Non-African American 89.4 (>60); Potassium 3.8 mmol/L (3.5-5.0)
[2020-09-24] MEDS: CONJUGATED ESTROGENS 25 MG IV SCH ×4 (00:09→11:31)
[2020-09-24 07:03] LABS: ABS Eosinophils 0.1 10^3/ul (0-0.6); ABS Lymphocytes 1.8 10^3/ul (1.0-4.8); ABS Monocytes 0.8 10^3/ul (0-0.8); ABS Neutrophils 3.7 10^3/ul (1.5-7.7); Eosinophil % 1.4 %; Hematocrit 23 % (35-47); Hemoglobin 7.7 g/dL (12.0-16.0); Lymphocyte % 28.5 %; Mean Corpuscular HGB Conc 33 g/dL (31-36); Mean Corpuscular Hemoglobin 28 pg (27-31); Mean Corpuscular Volume 84 fL (80-97); Mean Platelet Volume 8.1 fL (7.4-10.4); Nucleated Red Blood Cells % 0.1; Platelet Count 215 10^3/uL (150-450); Red Blood Count 2.81 10^6 /uL (3.70-4.87); Red Cell Distribution Width 20 % (10-15); White Blood Count 6.4 10^3/uL (3.5-10.8)
[2020-09-24 07:22] LABS: Calcium 8.1 mg/dL (8.6-10.3); EGFR Non-African American 103.3 (>60); Magnesium 1.7 mg/dL (1.9-2.7); Potassium 3.3 mmol/L (3.5-5.0)
[2020-09-24] MEDS: Multivitamins/Minerals TAB PO SCH (09:03)
[2020-09-24 11:28] LABS: Hematocrit 23 % (35-47); Hemoglobin 7.4 g/dL (12.0-16.0)
[2020-09-24] MEDS ORDERED: Magnesium Sulf 4 GM/100 ML IV 4,000 MG/100 ML BAG IVPB ONE (13:14)
[2020-09-24] MEDS: Potassium Chlor 20 meq TAB.ER PO ONE ×2 (13:33→13:43)
[2020-09-24 14:31] LABS: Hematocrit 21 % (35-47)
[2020-09-24] MEDS: NORETHINDRONE PO SCH ×2 (15:29→23:06)
[2020-09-24] MEDS: FERROUS FUMARATE PO SCH ×2 (15:29→23:06)
[2020-09-24] MEDS: ETHINYL ESTRADIOL PO SCH ×2 (15:29→23:06)
[2020-09-24] MEDS ORDERED: Ondansetron ODT 4 mg TAB 4 MG TAB SL PRN (16:52)
[2020-09-24 20:29] LABS: Hematocrit 26 % (35-47); Hemoglobin 8.7 g/dL (12.0-16.0)
[2020-09-25 02:46] LABS: Hematocrit 24 % (35-47); Hemoglobin 8.1 g/dL (12.0-16.0)
[2020-09-25 06:08] LABS: ABS Eosinophils 0.1 10^3/ul (0-0.6); ABS Lymphocytes 1.7 10^3/ul (1.0-4.8); ABS Monocytes 0.7 10^3/ul (0-0.8); ABS Neutrophils 3.4 10^3/ul (1.5-7.7); Eosinophil % 1.5 %; Hematocrit 24 % (35-47); Hemoglobin 7.8 g/dL (12.0-16.0); Lymphocyte % 28.5 %; Mean Corpuscular HGB Conc 33 g/dL (31-36); Mean Corpuscular Hemoglobin 28 pg (27-31); Mean Corpuscular Volume 86 fL (80-97); Nucleated Red Blood Cells % 0.2; Platelet Count 199 10^3/uL (150-450); Red Blood Count 2.76 10^6 /uL (3.70-4.87); Red Cell Distribution Width 19 % (10-15); White Blood Count 5.9 10^3/uL (3.5-10.8)
[2020-09-25 06:32] LABS: Anion Gap 8 mmol/L (2-11); Blood Urea Nitrogen 5 mg/dL (6-24); CO2 Carbon Dioxide 25 mmol/L (22-32); Calcium 8.6 mg/dL (8.6-10.3); Chloride 102 mmol/L (101-111); EGFR African American 134.3 (>60); Glucose 97 mg/dL (70-100); Magnesium 1.7 mg/dL (1.9-2.7); Potassium 3.8 mmol/L (3.5-5.0); Sodium 135 mmol/L (135-145)
[2020-09-25] MEDS: ETHINYL ESTRADIOL PO SCH (07:44)
[2020-09-25] MEDS: NORETHINDRONE PO SCH (07:44)
[2020-09-25] MEDS: FERROUS FUMARATE PO SCH (07:44)
[2020-09-25] MEDS: Multivitamins/Minerals TAB PO SCH (07:45)
[2020-09-25] MEDS ORDERED: Magnesium Sulfate IV 3 GM in NS 0.9% 100 ml BAG 100 ML IVPB ONE (08:01)
[2020-09-25 08:23] LABS: % Iron Saturation 5 % (15-55); Iron 22 ug/dL (50-212); Total Iron Binding Capacity 468 mcg/dL (250-450); Transferrin 334 mg/dL (203-362); Unsaturated Iron Binding < 453 ug/dL
[2020-09-25 11:37] VITALS: BP 120/70
== END 2020-09-25 14:30 | disposition home or self-care (01) ==
LOC: MEDTELE 10:05 → ED 10:05 → MEDTELE 15:30 → SUATTDRO 16:33 → SSU 09-24 19:39
PROVIDERS: ADMIT Hospitalist; ATTEND Internal Medicine

== ENCOUNTER 2021-03-13 14:14 | Inpatient (IN) ==
[2021-03-13] MEDS ORDERED: Ondansetron 4 mg VIAL 2 MG/ML 2 ml VIAL IV ONE (15:00)
[2021-03-13] MEDS ORDERED: Lorazepam PYXIS KEY PRN (15:00)
[2021-03-13] MEDS ORDERED: Lactated Ringers 1000 ml BAG 1,000 ML IV ONE (15:00)
[2021-03-13] MEDS ORDERED: LORazepam 2 mg VIAL 1 ml IV PUSH ONE (15:00)
[2021-03-13 15:02] LABS: ABS Lymphocytes 1.4 10^3/ul (1.0-4.8); ABS Monocytes 0.5 10^3/ul (0-0.8); ABS Neutrophils 3.7 10^3/ul (1.5-7.7); Eosinophil % 0.4 %; Hematocrit 36 % (35-47); Hemoglobin 11.5 g/dL (12.0-16.0); Lymphocyte % 24.5 %; Mean Corpuscular HGB Conc 32 g/dL (31-36); Mean Corpuscular Hemoglobin 26 pg (27-31); Mean Corpuscular Volume 81 fL (80-97); Mean Platelet Volume 7.4 fL (7.4-10.4); Platelet Count 221 10^3/uL (150-450); Red Blood Count 4.46 10^6 /uL (3.70-4.87); Red Cell Distribution Width 21 % (10-15); White Blood Count 5.7 10^3/uL (3.5-10.8)
[2021-03-13 15:26] LABS: HCG Pregnancy < 0.60 mIU/mL
[2021-03-13 15:36] LABS: ALT 34 U/L (7-52); AST 173 U/L (13-39); Albumin 4.4 g/dL (3.2-5.2); Albumin/Globulin Ratio 1.2 (1-3); Alkaline Phosphatase 125 U/L (35-149); Anion Gap 8 mmol/L (2-11); Blood Urea Nitrogen 5 mg/dL (6-24); C Reactive Protein 3.32 mg/L (<8.01); CO2 Carbon Dioxide 28 mmol/L (22-32); Calcium 9.4 mg/dL (8.6-10.3); Chloride 97 mmol/L (101-111); Globulin 3.7 g/dL (2-4); Glucose 133 mg/dL (70-100); Lipase 14 U/L (11.0-82.0); Potassium 3.6 mmol/L (3.5-5.0); Sodium 133 mmol/L (135-145); Total Protein 8.1 g/dL (6.4-8.9); eGFR CKD-EPI 126.7 (>60)
[2021-03-13] MEDS ORDERED: Thiamine 100 MG/ML 2 ml VIAL 100 MG, Folic Acid IV 1 MG, Multiple Vitamin IV ADULT 10 M... IV ONE (16:00)
[2021-03-13 16:25] LABS: Urine Appearance Cloudy; Urine Bilirubin Negative (Negative); Urine Blood Negative (Negative); Urine Color Yellow; Urine Glucose Negative (Negative); Urine Ketones Negative (Negative); Urine Nitrite Negative (Negative); Urine Protein Negative (Negative); Urine Specific Gravity 1.004 (1.002-1.030); Urine Urobilinogen Negative (Negative)
[2021-03-13 16:36] LABS: Urine Bacteria Absent (Absent); Urine Red Blood Cell Absent (Absent); Urine Squamous Epithelial Cell Present (Absent); Urine White Blood Cell 1+(6-10/hpf) (Absent)
[2021-03-13 16:43] LABS: Hepatitis A Ab IgM Negative (Negative)
[2021-03-13 16:56] LABS: Hepatitis C Antibody Negative (Negative)
[2021-03-13 17:17] LABS: Activated Partial Thrombo Time 28.9 seconds (26.0-38.0); INR 1.22 (0.86-1.15)
[2021-03-13 17:59] LABS: Alcohol, S 34 mg/dL (<13)
[2021-03-13] MEDS ORDERED: Thiamine 100 MG/ML 2 ml VIAL (200 mg) IM ONE (18:07)
[2021-03-13 19:08] LABS: Hepatitis B Surface Antigen Nonreactive (Nonreactive)
[2021-03-13 19:14] LABS: Hepatitis B Core IgM Nonreactive (Nonreactive)
[2021-03-13] MEDS ORDERED: Lactated Ringers 1000 ml BAG 1,000 ML IV SCH (20:00)
[2021-03-13] MEDS: Sucralfate 1 gm SUSP 1 GM/10 ML UDC PO SCH (20:13)
[2021-03-13] MEDS: Pantoprazole VIAL 40 MG VIAL IV SCH (20:13)
[2021-03-13 20:24] LABS: Magnesium 1.5 mg/dL (1.9-2.7)
[2021-03-13 21:18] LABS: Rapid COVID-19 Molecular Undetected (Undetected)
[2021-03-13] MEDS: LORazepam 2 mg VIAL 1 ml IV PUSH SCH (21:29)
[2021-03-14 00:59] LABS: Hematocrit 29 % (35-47); Hemoglobin 9.2 g/dL (12.0-16.0)
[2021-03-14] MEDS ORDERED: hydrALAZINE 20 mg/ml 1 ML Vial IV IV SLOW PU PRN (01:56)
[2021-03-14] MEDS ORDERED: Magnesium Sulfate 2 gm BAG 2 GM/50 ML BAG IVPB ONE (01:56)
[2021-03-14] MEDS: LORazepam 2 mg VIAL 1 ml IV PUSH SCH ×3 (05:05→21:10)
[2021-03-14 05:52] LABS: Hematocrit 30 % (35-47); Hemoglobin 9.4 g/dL (12.0-16.0); Mean Corpuscular HGB Conc 32 g/dL (31-36); Mean Corpuscular Hemoglobin 26 pg (27-31); Mean Corpuscular Volume 80 fL (80-97); Mean Platelet Volume 7.3 fL (7.4-10.4); Platelet Count 147 10^3/uL (150-450); Red Blood Count 3.68 10^6 /uL (3.70-4.87); Red Cell Distribution Width 20 % (10-15); White Blood Count 4.4 10^3/uL (3.5-10.8)
[2021-03-14 05:59] LABS: INR 1.26 (0.86-1.15)
[2021-03-14 06:09] LABS: Albumin 3.5 g/dL (3.2-5.2); Albumin/Globulin Ratio 1.1 (1-3); Calcium 8.4 mg/dL (8.6-10.3); Direct Bilirubin 0.9 mg/dL (0.03-0.18); Globulin 3.2 g/dL (2-4); Potassium 3.4 mmol/L (3.5-5.0); Total Bilirubin 1.9 mg/dL (0.2-1.0); Total Protein 6.7 g/dL (6.4-8.9); eGFR CKD-EPI 126.2 (>60)
[2021-03-14 06:58] LABS: ABS Lymphocytes 1.3 10^3/ul (1.0-4.8); ABS Monocytes 0.5 10^3/ul (0-0.8); ABS Neutrophils 2.5 10^3/ul (1.5-7.7); Eosinophil % 1.1 %; Lymphocyte % 28.7 %; Nucleated Red Blood Cells % 0.1
[2021-03-14] MEDS ORDERED: Multivitamins/Minerals TAB PO SCH (09:00)
[2021-03-14 09:05] LABS: Magnesium 1.9 mg/dL (1.9-2.7)
[2021-03-14] MEDS ORDERED: Midazolam 10 mg/10 ml VIAL 1 mg/ml 10 ml VIAL (10 mg) ONE (09:48)
[2021-03-14] MEDS ORDERED: fentaNYL 100 mcg/2 ml 50 MCG/ML VIAL ONE (09:48)
[2021-03-14] MEDS ORDERED: diPHENhydraMINE IV 50 MG/ML 1 ml VIAL (BENADRYL) ONE (09:49)
[2021-03-14] MEDS: Sucralfate 1 gm SUSP 1 GM/10 ML UDC PO SCH ×4 (09:57→21:16)
[2021-03-14] MEDS ORDERED: LORazepam 2 mg VIAL 1 ml IV PUSH SCH (11:10)
[2021-03-14] MEDS ORDERED: KCL 20 MEQ/100 ML IVPREMIX 20 MEQ/100 ML BAG IV ONE (11:47)
[2021-03-14] MEDS: Multivitamins/Minerals TAB PO SCH (12:26)
[2021-03-14] MEDS: Pantoprazole VIAL 40 MG VIAL IV SCH (12:36)
[2021-03-15 06:20] LABS: ABS Eosinophils 0.1 10^3/ul (0-0.6); ABS Lymphocytes 1.4 10^3/ul (1.0-4.8); ABS Monocytes 0.6 10^3/ul (0-0.8); ABS Neutrophils 2.4 10^3/ul (1.5-7.7); Eosinophil % 1.7 %; Hematocrit 30 % (35-47); Hemoglobin 9.5 g/dL (12.0-16.0); Lymphocyte % 31.1 %; Mean Corpuscular HGB Conc 32 g/dL (31-36); Mean Corpuscular Hemoglobin 26 pg (27-31); Mean Corpuscular Volume 82 fL (80-97); Nucleated Red Blood Cells % 0.2; Platelet Count 136 10^3/uL (150-450); Red Blood Count 3.61 10^6 /uL (3.70-4.87); Red Cell Distribution Width 20 % (10-15); White Blood Count 4.4 10^3/uL (3.5-10.8)
[2021-03-15 06:32] LABS: Albumin 3.7 g/dL (3.2-5.2); Calcium 9.1 mg/dL (8.6-10.3); Potassium 3.7 mmol/L (3.5-5.0); Total Bilirubin 2.1 mg/dL (0.2-1.0)
[2021-03-15 06:38] LABS: Albumin/Globulin Ratio 1.2 (1-3); Globulin 3.2 g/dL (2-4); Total Protein 6.9 g/dL (6.4-8.9); eGFR CKD-EPI 125.1 (>60)
[2021-03-15] MEDS: Sucralfate 1 gm SUSP 1 GM/10 ML UDC PO SCH ×4 (07:18→21:35)
[2021-03-15 07:27] LABS: Ferritin 55.5 ng/mL (11-307)
[2021-03-15] MEDS: Multivitamins/Minerals TAB PO SCH (08:47)
[2021-03-15] MEDS: Pantoprazole VIAL 40 MG VIAL IV SCH (08:48)
[2021-03-15] MEDS: LORazepam 2 mg VIAL 1 ml IV PUSH SCH ×4 (10:08→18:57)
[2021-03-15] MEDS ORDERED: Polyethylene Glycol 3350 17 GM PACKET PO PRN (20:25)
[2021-03-16] MEDS: LORazepam 2 mg VIAL 1 ml IV PUSH SCH ×3 (01:55→21:04)
[2021-03-16 06:12] LABS: ABS Eosinophils 0.1 10^3/ul (0-0.6); ABS Lymphocytes 1.4 10^3/ul (1.0-4.8); ABS Monocytes 0.7 10^3/ul (0-0.8); ABS Neutrophils 3.2 10^3/ul (1.5-7.7); Eosinophil % 1.5 %; Hematocrit 33 % (35-47); Hemoglobin 10.4 g/dL (12.0-16.0); Lymphocyte % 26.2 %; Mean Corpuscular HGB Conc 32 g/dL (31-36); Mean Corpuscular Hemoglobin 26 pg (27-31); Mean Corpuscular Volume 82 fL (80-97); Mean Platelet Volume 8.4 fL (7.4-10.4); Nucleated Red Blood Cells % 0.1; Platelet Count 164 10^3/uL (150-450); Red Blood Count 3.99 10^6 /uL (3.70-4.87); Red Cell Distribution Width 20 % (10-15); White Blood Count 5.4 10^3/uL (3.5-10.8)
[2021-03-16 06:24] LABS: Calcium 9.5 mg/dL (8.6-10.3); Potassium 3.6 mmol/L (3.5-5.0); eGFR CKD-EPI 127.3 (>60)
[2021-03-16] MEDS: Multivitamins/Minerals TAB PO SCH (08:14)
[2021-03-16] MEDS: Pantoprazole VIAL 40 MG VIAL IV SCH (08:15)
[2021-03-16] MEDS: Sucralfate 1 gm SUSP 1 GM/10 ML UDC PO SCH ×4 (08:15→20:29)
[2021-03-16] MEDS ORDERED: Oxymetazoline 0.05% NASAL SPR 15 ML BTL BOTH NARES ONE (08:46)
[2021-03-16] MEDS: Ondansetron 4 mg VIAL 2 MG/ML 2 ml VIAL IV PRN (20:43)
[2021-03-17] MEDS: Sucralfate 1 gm SUSP 1 GM/10 ML UDC PO SCH ×2 (07:42→12:19)
[2021-03-17] MEDS: Multivitamins/Minerals TAB PO SCH (09:25)
[2021-03-17] MEDS: Pantoprazole VIAL 40 MG VIAL IV SCH (09:26)
[2021-03-17] MEDS ORDERED: Oxymetazoline 0.05% NASAL SPR 15 ML BTL BOTH NARES ONE (09:48)
[2021-03-17] MEDS: Ondansetron 4 mg VIAL 2 MG/ML 2 ml VIAL IV PRN (09:59)
[2021-03-17] MEDS: LORazepam 2 mg VIAL 1 ml IV PUSH SCH (10:08)
[2021-03-17] MEDS ORDERED: Lidocaine PATCH 5% PATCH ONE (10:28)
[2021-03-17] MEDS ORDERED: Lidocaine PATCH 5% PATCH TRANSDERM SCH (11:41)
[2021-03-17 17:04] VITALS: BP 137/80
[2021-03-17] MEDS ORDERED: Lidocaine Patch REMOVE NOTE PATCH OFF SCH (21:00)
[2021-03-18] MEDS ORDERED: Lidocaine PATCH 5% PATCH TRANSDERM SCH (10:14)
== END 2021-03-17 17:30 | disposition home or self-care (01) | DRG 775 ==
LOC: ED 14:14 → SUATTDRO 19:25 → EDHOLD 19:25 → MEDTELE 03-14 02:49
PROVIDERS: ADMIT Internal Medicine; ATTEND Student in an Organized Health Care Education/Training Program